=== PATIENT | male | born 1940 | race Caucasian/White ===

== ENCOUNTER 2019-03-19 08:13 | Outpatient (CLI) | payer MEDICARE, SELFPAY ==
--- NOTE | ~2019-03-19 | CT_ITS ---
EXAMINATION: CT chest abdomen pelvis w con EXAM DATE: 03/19/2019 08:40 INDICATION: Colon cancer follow-up. TECHNIQUE: Spiral CT of the chest, abdomen and pelvis was performed following intravenous injection o f 100 mL Omnipaque 350. Axial, coronal and sagittal images were reviewed. Coronal maximum intensity pixel images of chest reviewed. The dose-length product (DLP) for this examination was 469.20 mGy-c m. The exposure was tailored according to patient size (auto mA exposure control), and iterative rec onstruction (ASIR) was used as additional dose reduction technique. Comparison is made to prior exami nation from 10/09/2018. FINDINGS: CHEST: Some linear right basilar scarring. There is left-sided Chemo-Port. There is trace right ple ural effusion with decrease in size compared to previous study Tracheobronchial tree is patent. Th ere is no mediastinal, hilar or axillary lymphadenopathy. There is no pneumothorax. Heart normal in size. There is mild to moderate coronary arterial calcification, arterial sclerosis. Mild emphy sema. ABDOMEN PELVIS: Oval cystic perihepatic fluid pocket with well organized wall has decreased in size, today measuring 8.6 x 5.0 cm (previously about 10 x 7 cm). There has been interval decrease in the l ow density right liver lobe lesion size, today relatively homogeneous low density versus the multiple enhancing internal septa seen on prior study, measuring 5.0 x 4.5 cm today versus about 7.5 x 6.5 cm . Likely response to treatment. Gallbladder wall calcifications, adenomyomatosis and probably also c holelithiasis. Portal and splenic veins are patent. Kidneys enhance symmetrically. There is no hyd ronephrosis. The prostate is unremarkable. The bladder is unremarkable. There is no retroperitone al or pelvic lymphadenopathy. There is moderate scattered arteriosclerotic disease. There is a left lower quadrant colostomy. Stomach is unremarkable. There is some dehiscence of the reeder bumbilical abdominal wall. There is a left inguinal hernia containing nonobstructed loop of small bow el. There is a moderate-sized right-sided fat-containing inguinal hernia. There is mild scattered col onic diverticulosis. There is no adjacent inflammatory change to suggest diverticulitis. There is ex pected amount of colonic stool. No free intraperitoneal gas. There are no osteoblastic or osteoly tic lesions identified. IMPRESSION: 1. Interval decrease in size of liver metastasis, without enhancing solid component identified today . 2. Interval decrease in size of perihepatic contained cystic region. 3. Only trace residual right pleural effusion. 4. Nonobstructing hernias. 5. Mild scattered colonic diverticulosis. 6. Adenomyomatosis. Cholelithiasis. 7. Mild emphysema. Reviewed, dictated and finalized at location B. [employer] IMPRESSION: 1. Interval decrease in size of liver metastasis, without enhancing solid comp onent identified today. 2. Interval decrease in size of perihepatic contained cystic region. 3. Only trace residual right pleural effusion. 4. Nonobstructing hernias. 5. Mild scattered colonic diverticulosis. 6. Adenomyomatosis. Cholelithiasis. 7. Mild emphysema.
== END 2019-03-19 08:14 | disposition home or self-care (01) ==
PROVIDERS: Visit Provider Internal Medicine Hematology & Oncology
DX: C18.9 Malignant neoplasm of colon, unspecified (principal); C78.7 Secondary malignant neoplasm of liver and intrahepatic bile duct; K46.9 Unspecified abdominal hernia without obstruction or gangrene; K57.90 Diverticulosis of intestine, part unspecified, without perforation or abscess without bleeding; D36.9 Benign neoplasm, unspecified site; K80.20 Calculus of gallbladder without cholecystitis without obstruction; J43.9 Emphysema, unspecified
CPT/HCPCS: 71260; 74177; Q9967

== ENCOUNTER 2019-08-25 08:27 | Outpatient (CLI) | payer MEDICARE, SELFPAY ==
--- NOTE | ~2019-08-25 | CT_ITS ---
EXAMINATION: CT chest abdomen pelvis w con EXAM DATE: 08/25/2019 09:06 INDICATION: Colon cancer follow-up. TECHNIQUE: Spiral CT of the chest, abdomen and pelvis was performed following intravenous injection o f 100 mL Omnipaque 350. Axial, coronal and sagittal images were reviewed. Coronal maximum intensity pixel images of chest reviewed. The dose-length product (DLP) for this examination was 775.65 mGy-c m. The exposure was tailored according to patient size (auto mA exposure control), and iterative rec onstruction (ASIR) was used as additional dose reduction technique. Comparison is made to prior exami nation from 03/19/2019. FINDINGS: CHEST: There is linear right basilar scarring. There is left-sided Chemo-Port. No pleural or perica rdial effusions. Tracheobronchial tree is patent. There is no mediastinal, hilar or axillary lymph adenopathy. There is no pneumothorax. Heart normal in size. There is mild to moderate coronary arterial calcification, arterial sclerosis. Mild emphysema. ABDOMEN PELVIS: Oval cystic perihepatic fluid pocket with well organized wall has decreased in size, today measuring 7.6 x 4.7 cm (previously 8.6 x 5.0 cm.) Heterogeneously low right liver lobe metasta tic region has significantly increased in size, increase in heterogeneity measuring about 8.8 x 7.7 c m today versus about 5 cm diameter on prior study development of some intrahepatic biliary duct dilat ion to the right liver lobe likely result of obstruction from this enlarging metastatic lesion. Gallb ladder wall calcifications, adenomyomatosis and probably also cholelithiasis. Splenic calcifications. Adrenal glands, pancreas are unremarkable. Portal and splenic veins are patent. Kidneys enhance sym metrically. There is no hydronephrosis. The prostate is unremarkable. The bladder is unremarkable . There is no retroperitoneal or pelvic lymphadenopathy. There is moderate scattered arteriosclero tic disease. There is a left lower quadrant colostomy. Stomach is unremarkable. There is some dehiscence of the reeder bumbilical abdominal wall. There is a left inguinal hernia containing nonobstructed loop of small bow el. There is a moderate-sized right-sided fat-containing inguinal hernia. There is mild scattered col onic diverticulosis. There is no adjacent inflammatory change to suggest diverticulitis. There is ex pected amount of colonic stool. No free intraperitoneal gas. There are no osteoblastic or osteoly tic lesions identified. Right hip gamma nail. IMPRESSION: 1. Interval increase in size of right liver lobe liver metastasis, and development of intrahepatic b iliary duct dilation. 2. Interval decrease in size of perihepatic contained cystic region. 3. Interval placement of right hip gamma nail. 4. Nonobstructing hernias. 5. Mild scattered colonic diverticulosis. 6. Adenomyomatosis. Cholelithiasis. 7. Mild emphysema. Reviewed, dictated and finalized at location A. IMPRESSION: 1. Interval increase in size of right liver lobe liver metastasis, and develop ment of intrahepatic biliary duct dilation. 2. Interval decrease in size of perihepatic contained cystic region. 3. Interval placement of right hip gamma nail. 4. Nonobstructing hernias. 5. Mild scattered colonic diverticulosis. 6. Adenomyomatosis. Cholelithiasis. 7. Mild emphysema.
== END 2019-08-25 08:28 | disposition home or self-care (01) ==
LOC: ANHIMG 08:37
PROVIDERS: PCP Internal Medicine; Visit Provider Internal Medicine Hematology & Oncology
DX: C18.9 Malignant neoplasm of colon, unspecified (principal); C78.7 Secondary malignant neoplasm of liver and intrahepatic bile duct; J43.9 Emphysema, unspecified; K57.30 Diverticulosis of large intestine without perforation or abscess without bleeding; K80.20 Calculus of gallbladder without cholecystitis without obstruction
CPT/HCPCS: 71260; 74177; Q9967

== ENCOUNTER 2019-11-12 09:25 | Outpatient (CLI) | payer MEDICARE, SELFPAY ==
--- NOTE | ~2019-11-12 | CT_ITS ---
EXAMINATION: CT chest abdomen pelvis w con DATE: 11/12/2019 10:15 INDICATION: Metastatic colon cancer TECHNIQUE: Transaxial computed tomographic images of the chest, abdomen, and pelvis were obtained aft er the administration of 100 cc of Omnipaque 350 intravenous contrast. The dose-length product (DLP) was 610.91 mGy-cm. Automated exposure control and iterative reconstruction technique were employed. COMPARISON: 08/25/2019, 03/19/2019, 10/30/2018, 05/09/2018 FINDINGS: CHEST CT: The lungs are free of acute opacities. There is no pleural effusion or pneumothorax. A stable 4 mm no dule of the right lower lobe abuts the major fissure. Calcified pulmonary nodules and calcified right hilar and mediastinal lymph nodes are consistent with old granulomatous disease. A left subclavian P ort-A-Cath ends with its tip in the distal superior vena cava. No pathologically enlarged thoracic ly mph nodes are identified. The heart size is normal. There is moderate thoracic spondylosis. ABDOMEN/PELVIS CT: An 8.0 x 4.9 cm encapsulated fluid collection exerting mass effect on the right hepatic lobe is sligh tly increased in size since the prior examination. There is slight interval decrease in size of an il l-defined mass of the right hepatic lobe measuring 7.5 cm in greatest dimension, previously 9.5 cm on the most recent comparison. There is mild intrahepatic biliary dilatation distal to the mass. No new liver lesion is identified. Punctate calcifications in an otherwise normal spleen likely represent h ealed granulomatous disease. Stones are present in the nondistended gallbladder. The common bile duct measures up to 8 mm. There is a possible stone of the distal duct. The pancreas and adrenal glands a re normal. Hypoattenuating lesions in the kidneys, measuring up to 6 mm on the right, are too small t o characterize but likely represent cysts. There is calcified atherosclerosis of the aorta and many o f the other arteries. No pathologically enlarged abdominal or pelvic lymph nodes are identified. Ther e is no free intraperitoneal gas or evidence of bowel obstruction. There are changes of partial colec beba with a diverting colostomy of the left lower quadrant. There are umbilical and left inguinal her nias containing nonobstructed bowel. No dilated loops of bowel are present. Internal stabilization celeste rdware is present in the right femur. There is mild lumbar spondylosis. IMPRESSION: 1. Interval decreased in size of an ill-defined metastasis of the right hepatic lobe. 2. Slight increase in size of an encapsulated fluid collection adjacent to the right hepatic lobe. 3. No evidence of metastatic disease in the chest. 4. Umbilical and left inguinal hernias containing nonobstructed bowel. 5. Cholelithiasis without evidence of cholecystitis. 6. Mild enlargement of the common bile duct with possible choledocholithiasis of the distal duct. Reviewed, dictated and finalized at location A. IMPRESSION: 1. Interval decreased in size of an ill-defined metastasis of the right hepatic lobe. 2. Slight increase in size of an encapsulated fluid collection adjacent to the right hepatic lobe. 3. No evidence of metastatic disease in the chest. 4. Umbilical and left inguinal hernias containing nonobstructed bowel. 5. Cholelithiasis without evidence of cholecystitis. 6. Mild enlargement of the common bile duct with possible choledocholithiasis o f the distal duct.
== END 2019-11-12 09:26 | disposition home or self-care (01) ==
LOC: ANHIMG 09:33
PROVIDERS: PCP Internal Medicine; Visit Provider Internal Medicine Hematology & Oncology
DX: C18.9 Malignant neoplasm of colon, unspecified (principal); C78.7 Secondary malignant neoplasm of liver and intrahepatic bile duct; K42.9 Umbilical hernia without obstruction or gangrene; K40.90 Unilateral inguinal hernia, without obstruction or gangrene, not specified as recurrent; K80.20 Calculus of gallbladder without cholecystitis without obstruction
CPT/HCPCS: 71260; 74177; Q9967

== ENCOUNTER 2020-02-02 08:13 | Outpatient (CLI) | payer MEDICARE, SELFPAY ==
--- NOTE | ~2020-02-02 | CT_ITS ---
EXAMINATION: CT chest abdomen pelvis w con DATE: 02/02/2020 08:55 INDICATION: Restaging of colon cancer metastatic to liver TECHNIQUE: Computed tomography (CT) of the chest, abdomen, and pelvis was performed with 100 cc Omnip aque 350 intravenous contrast. Automated exposure control and iterative reconstruction technique were employed. Exam dose: 545.73 mGy-cm total exam DLP. COMPARISON: 11/12/2019 CT chest abdomen pelvis FINDINGS: CHEST CT: No pulmonary infiltrate or consolidation or pulmonary mass lesion is detected. Normal heart size. No pericardial or pleural effusion. There is thoracic aortic and great vessel calcification. No thoracic aortic aneurysm. Coronary artery calcification. No hilar or mediastinal mass lesion or lymphadenopathy. Normal appearance of the thyroid gland. There are multiple calcified right hilar nodes, consistent with old pulmonary granulomatous disease. Left Port-A-Cath catheter in superior vena cava. There is a small sliding hiatal hernia. ABDOMEN/PELVIS CT: There is interval mild decrease in size of an irregular hypoattenuating mass of the right hepatic lob e since 11/12/2019, previously measuring up to 7.5 cm maximal dimension, currently 7.2 cm. Persistent large encapsulated fluid collection along the posterolateral margin of the right hepatic l obe, mildly diminished in size, measuring up to approximately 7.2 cm maximal length, compared to 7.6 cm on 11/12/2019. Numerous stones are noted at the dependent aspect of the gallbladder lumen. No gallbladder wall thick ening or pericholecystic fluid or stranding. No intrahepatic or extrahepatic bile duct or pancreatic duct dilatation. No pancreatic mass lesion or calcification. There are numerous calcified splenic granulomas. No splenomegaly. Normal morphology of the adrenal glands. 8 mm lower pole right renal cyst. The kidneys are otherwise unremarkable. No urinary tract calculus o r hydroureteronephrosis. There is atherosclerotic calcification of the abdominal aorta, celiac and reeder perior mesenteric and renal and iliac arteries. No abdominal aortic aneurysm is evident. No intraperi toneal or retroperitoneal or pelvic mass lesion or adenopathy or ascites is evident. Prostate enlargement and calcifications. There is moderate diffuse thickening of the urinary bladder wall. A small amount of contrast material or less likely opaque stones in the right dependent urinary bladder. Bilateral fat-containing inguinal hernias, larger on the right. No intraperitoneal or retroperitoneal or pelvic mass lesion or adenopathy or ascites. Status post left colon resection with diverting colostomy left lower quadrant. No bowel obstruction o r intraperitoneal free air. Compression screw and intramedullary ollita of right femur. Probable T3 hemangioma. Interval prominent patchy osteosclerosis and prominent fracture deformities of L3 and L4, new since 1 . New fracture of left L3 transverse process since 11/12/2019. IMPRESSION: Prominent sclerosis and fracture deformities of L3 and L4 and fracture of the left L3 transverse proc ess since 11/12/2019 Interval mild decrease in size of right hepatic mass since 11/12/2019 Slightly diminished size of encapsulated fluid collection at posterolateral margin of right hepatic l obe Cholelithiasis Status post left colon resection with diverting left colostomy Reviewed, dictated and finalized at [facility]. Reviewed, dictated and finalized at location A. [employer] SUPER[employer]OR IMPRESSION: Prominent sclerosis and fracture deformities of L3 and L4 and fracture of the l eft L3 transverse process since 11/12/2019 Interval mild decrease in size of right hepatic mass since 11/12/2019 Slightly diminished size of encapsu
== END 2020-02-02 08:14 | disposition home or self-care (01) ==
LOC: ANHIMG 08:20
PROVIDERS: PCP Internal Medicine; Visit Provider Internal Medicine Hematology & Oncology
DX: C18.9 Malignant neoplasm of colon, unspecified (principal); C78.7 Secondary malignant neoplasm of liver and intrahepatic bile duct; K80.20 Calculus of gallbladder without cholecystitis without obstruction
CPT/HCPCS: 71260; 74177; Q9967

== ENCOUNTER 2020-05-03 08:42 | Outpatient (CLI) | payer MEDICARE, SELFPAY ==
--- NOTE | ~2020-05-03 | CT_ITS ---
EXAMINATION: CT abdomen pelvis w con EXAM DATE: 05/03/2020 09:07 INDICATION: Colon cancer, liver metastases. TECHNIQUE: Spiral CT of the abdomen and pelvis was performed following intravenous injection of 100 m L Omnipaque 350. Axial, coronal and sagittal images were reviewed. The dose-length product (DLP) fo r this examination was 335.96 mGy-cm. The exposure was tailored according to patient size (auto mA e xposure control), and iterative reconstruction (ASIR) was used as additional dose reduction technique . Comparison is made to prior examination from 02/02/2020. FINDINGS: There 7 centimeter cystic mass along the lateral margin of the right liver lobe, probably p eritoneal metastasis with some smaller regions below this. Heterogeneous lobular ill-defined region i n the right liver lobe measuring about 6.5 cm, metastatic disease. These appear essentially unchanged compared to prior study. Splenic granulomas. Adrenal glands are unremarkable. There are gallstones within an otherwise unremarkable gallbladder. No evidence of obstructive biliar y disease. Portal and splenic veins are patent. Kidneys enhance symmetrically. There is no hydrone phrosis. Small to moderate right, small left inguinal hernias, the one on the left has nonobstructed small bowel loop bulging inside. There is mild prostatomegaly. The bladder is unremarkable. There i s no retroperitoneal or pelvic lymphadenopathy. There is moderate scattered arteriosclerotic diseas e. Pancreas unremarkable. The appendix is not positively visualized. There is no pericecal inflammatory change to suggest appe ndicitis. The stomach and small bowel are unremarkable. There is left lower quadrant colostomy, an d a Zamora's pouch. No free intraperitoneal gas. The heart is normal in size. There are no alexis cardial or pleural effusions. Small amount of basilar postinfectious residua. There are no osteoblastic or osteolytic lesions iden tified. Chronic burst fractures of L3 and L4 with moderate to severe loss of the L3 height centrally and anteriorly, moderate loss of the L4 vertebral body heights. About 3 mm retropulsion of the L3 sup erior endplate is unchanged. There is a right hip gamma nail. IMPRESSION: 1. Right liver lobe mass and adjacent peritoneal cystic masses without progression. 2. Chronic L3 and L4 burst fractures. 3. Inguinal hernias, other chronic findings. Reviewed, dictated and finalized at location A. IMPRESSION: 1. Right liver lobe mass and adjacent peritoneal cystic masses without progres sarai. 2. Chronic L3 and L4 burst fractures. 3. Inguinal hernias, other chronic findings.
== END 2020-05-03 08:43 | disposition home or self-care (01) ==
PROVIDERS: PCP Internal Medicine; Visit Provider Internal Medicine Hematology & Oncology
DX: C18.9 Malignant neoplasm of colon, unspecified (principal); C78.7 Secondary malignant neoplasm of liver and intrahepatic bile duct; S32.031A Stable burst fracture of third lumbar vertebra, initial encounter for closed fracture; S32.041A Stable burst fracture of fourth lumbar vertebra, initial encounter for closed fracture; K40.20 Bilateral inguinal hernia, without obstruction or gangrene, not specified as recurrent
CPT/HCPCS: 74177; Q9967

== ENCOUNTER 2020-08-12 06:59 | Outpatient (CLI) | payer MEDICARE, SELFPAY ==
--- NOTE | ~2020-08-12 | CT_ITS ---
EXAMINATION: CT chest abdomen pelvis w con EXAM DATE: 08/12/2020 07:39 INDICATION: Colon cancer metastasized to liver. TECHNIQUE: Spiral CT of the chest, abdomen and pelvis was performed following intravenous injection o f 100 mL Omnipaque 350. Axial, coronal and sagittal images chest, abdomen and pelvis were reviewed. Coronal maximum intensity pixel images of chest reviewed. The dose-length product (DLP) for this ex amination was 337.46 mGy-cm. The exposure was tailored according to patient size (auto mA exposure c ontrol), and iterative reconstruction (ASIR) was used as additional dose reduction technique. Compari son is made to prior examination from 05/03/2020. FINDINGS: CHEST: Mild emphysema. Small amount of post infectious residua, no suspicious lung opacities. There i s left-sided Chemo-Port. No pleural or pericardial effusions. Tracheobronchial tree is patent. Th ere is no mediastinal, hilar or axillary lymphadenopathy. There is no pneumothorax. Heart normal in size. There is mild to moderate coronary arterial calcification, arterial sclerosis. ABDOMEN PELVIS: There 6.7 centimeter cystic mass along the lateral margin of the right liver lobe, peritoneal metastasis with some smaller regions below this, slight decrease in volume. Heterogeneous lobular ill-defined metastatic lesion in the right liver lobe measuring up to 7.8 cm, mild interval i ncrease in volume. Splenic granulomata. Adrenal glands are unremarkable. There are gallstones within an otherwise unremarkable gallbladder. No evidence of obstructive biliar y disease. Portal and splenic veins are patent. Kidneys enhance symmetrically. There is no hydrone phrosis. Small to moderate right, small left inguinal hernias, the one on the left has nonobstructed small bowel loop bulging inside. There is mild prostatomegaly. The bladder is unremarkable. There i s no retroperitoneal or pelvic lymphadenopathy. There is moderate scattered arteriosclerotic diseas e. Pancreas unremarkable. The appendix is not positively visualized. There is no pericecal inflammatory change to suggest appe ndicitis. The stomach and small bowel are unremarkable. There is left lower quadrant colostomy, an d a Zamora's pouch. No free intraperitoneal gas. The heart is normal in size. There are no alexis cardial or pleural effusions. 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 Chronic burst fractures of L3 and L4 with moderate to severe loss of the L3 height central ly and anteriorly, moderate loss of the L4 vertebral body heights. About 3 mm retropulsion of the L3 superior endplate is unchanged. There is a right hip gamma nail. T3 hemangioma. IMPRESSION: 1. Right liver lobe mass, mild increase in volume. 2. Adjacent peritoneal cystic masses, minimal decrease in volume. 3. 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 4. Chronic L3 and L4 burst fractures. 5. Inguinal hernias, other chronic findings. Reviewed, dictated and finalized at location B.
[2020-08-12 07:26] LABS: Estimated Glomerular Filt Rate 49
== END 2020-08-12 07:00 | disposition home or self-care (01) ==
LOC: ANHIMG 07:04
PROVIDERS: PCP Internal Medicine; Visit Provider Internal Medicine Hematology & Oncology
DX: C18.9 Malignant neoplasm of colon, unspecified (principal); C78.7 Secondary malignant neoplasm of liver and intrahepatic bile duct
CPT/HCPCS: 71260; 74177; Q9967

== ENCOUNTER 2020-11-17 09:17 | Outpatient (CLI) | payer MEDICARE, SELFPAY ==
--- NOTE | ~2020-11-17 | CT_ITS ---
EXAMINATION: CT chest abdomen pelvis w con DATE: 11/17/2020 10:17 INDICATION: Colon cancer metastatic to liver. TECHNIQUE: Computed tomography (CT) of the chest, abdomen, and pelvis was performed with 100 mL Omnip aque 350 intravenous contrast. Automated exposure control and iterative reconstruction technique were employed. The dose-length product was 440.80 mGy-cm. COMPARISON: CT chest, abdomen, and pelvis 08/12/2020, 05/09/18 FINDINGS: CHEST CT: There are small pleural effusions, right worse than left. There is mild peripheral atelectasis in rig ht lower lobe and right middle lobe. There is a left internal jugular port with tip at superior cavoa trial junction. 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 There is left atrial enlargement of the heart. There are coronary artery calcificat ions. There are calcifications of the aortic valve. No pericardial effusion. There are bridging endpl ate osteophytes at multiple levels in the spine, consistent with diffuse idiopathic skeletal hyperost osis (DISH). There is an old healed fracture of right 12th rib. ABDOMEN/PELVIS CT: There is a 10.6 x 7.7 cm mass in right hepatic lobe, increased from 8.0 x 4.8 cm on 08/12/20. 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 There is a 6.5 x 4.1 cm thick-walled cystic mass l ateral to right hepatic lobe, stable from 08/12/20. There are gallstones in the gallbladder, which is n ormal in size. Calcifications in the spleen are consistent with old granulomatous disease. The pancre as and adrenal glands are normal. There is cortical thinning of the kidneys. There is a left inguinal hernia containing nonobstructed small bowel. There is a right inguinal hernia containing fat. The pr ostate is mildly enlarged. A Clara pouch is noted. There is an end colostomy in left abdomen. Ther e are no dilated loops of bowel. There is an umbilical hernia containing nonobstructed small bowel. T here are no pathologically enlarged lymph nodes. There is no free intraperitoneal fluid. There is int ernal fixation of right femur. There are chronic burst fractures of L3 on L4. IMPRESSION: 1. Worsened liver mass, consistent with metastatic disease. 2. Thick-walled cystic mass lateral to right hepatic lobe, stable from 08/12/20 and improved from 9, consistent with chronic hematoma versus abscess. 3. Umbilical hernia and left internal hernia containing nonobstructed small bowel. 4. Worsened small pleural effusions. Reviewed, dictated and finalized at location A. IMPRESSION: 1. Worsened liver mass, consistent with metastatic disease. 2. Thick-walled cystic mass lateral to right hepatic lobe, stable from 08/12/20 a nd improved from 05/09/18, consistent with chronic hematoma versus abscess. 3. Umbilical hernia and left internal hernia containing nonobstructed small bow el. 4. Worsened small pleural effusions.
== END 2020-11-17 09:18 | disposition home or self-care (01) ==
PROVIDERS: PCP Internal Medicine; Visit Provider Internal Medicine Hematology & Oncology
DX: C18.9 Malignant neoplasm of colon, unspecified (principal); C78.7 Secondary malignant neoplasm of liver and intrahepatic bile duct; J90 Pleural effusion, not elsewhere classified; K42.9 Umbilical hernia without obstruction or gangrene
CPT/HCPCS: 71260; 74177; Q9967